=== PATIENT | female | born 1985 | race Caucasian/White ===

== ENCOUNTER 2021-07-14 20:59 | Emergency (ER) | payer MEDICAID ==
[~2021-07-14] VITALS: Ht 160 cm; Wt 88.5 kg
[2021-07-14 21:50] VITALS: BP 150/100
[2021-07-14] MEDS ORDERED: CYCL10TA9 PO (22:31)
[2021-07-14] MEDS ORDERED: HYDR-4209 PO (22:31)
[2021-07-14] MEDS ORDERED: CYCLOBENZAPRINE 10 MG TABLET ONE (22:40)
[2021-07-14] MEDS ORDERED: HYDROCODONE/APAP 5/325MG TABLET ONE (22:40)
[2021-07-14] MEDS ORDERED: CYCLOBENZAPRINE 10 MG TABLET PO ONE (23:00)
[2021-07-14] MEDS ORDERED: HYDROCODONE/APAP 5/325MG TABLET PO ONE (23:00)
== END 2021-07-14 22:45 | disposition home or self-care (01) ==
LOC: ER 21:03
DX: S16.1XXA Strain of muscle, fascia and tendon at neck level, initial encounter (principal); S29.012A Strain of muscle and tendon of back wall of thorax, initial encounter; V49.9XXA Car occupant (driver) (passenger) injured in unspecified traffic accident, initial encounter; Y93.89 Activity, other specified; Y92.89 Other specified places as the place of occurrence of the external cause; Y99.8 Other external cause status

== ENCOUNTER 2022-08-11 19:39 | Emergency (ER) | payer MEDICAID ==
[~2022-08-11] VITALS: Ht 162.6 cm; Wt 86.2 kg
[~2022-08-11 19:39] MED LIST: CYCL10TA9 PO; HYDR-4209 PO
[2022-08-11] MEDS ORDERED: KETOROLAC TROMETHAMINE INJ 30 MG/ML VIAL ONE (21:36)
[2022-08-11] MEDS: KETOROLAC TROMETHAMINE INJ 30 MG/ML VIAL IM ONE (21:39)
[2022-08-11 21:50] LABS: BASOPHILS % (AUTO) 0.4 % (0.0-2.0); HEMATOCRIT 39 % (33-45); HEMOGLOBIN 12.5 g/dL (11.5-14.8); LYMPHOCYTES # (AUTO) 3.4 K/uL (0.8-4.8); LYMPHOCYTES % (AUTO) 29.4 % (20.0-44.0); MEAN CORPUSCULAR HGB CONC 32 g/dl (31.0-36.0); MEAN CORPUSCULAR VOLUME 86 fL (82-100); MONOCYTES # (AUTO) 0.9 K/uL (0.1-1.30); MONOCYTES % (AUTO) 7.8 % (2.0-12.0); NEUTROPHILS % (AUTO) 61.4 % (43.0-81.0); PLATELET COUNT (AUTO) 243 K/uL (150-450); RED BLOOD CELL COUNT(AUTO) 4.54 MIL/uL (4.0-5.2); WHITE BLOOD COUNT (AUTO) 11.4 K/uL (4.3-11.0)
[2022-08-11 22:08] LABS: CALCIUM, SERUM 8.5 mg/dL (8.5-10.1); CREATININE 0.7 mg/dL (0.6-1.3); POTASSIUM 3.9 mmol/L (3.5-5.1)
[2022-08-11 22:25] LABS: ALBUMIN 2.8 g/dL (3.4-5.0); BILIRUBIN,DIRECT 0.1 mg/dL (0.0-0.2); BILIRUBIN,TOTAL 0.2 mg/dL (0.2-1.0); TOTAL PROTEIN, SERUM 7.9 g/dL (6.4-8.2)
[2022-08-11] MEDS ORDERED: IBUP-1955 PO (23:21)
[2022-08-11] MEDS ORDERED: CEPH500C2 PO (23:21)
--- NOTE | 2022-08-11 23:23 | NUR ---
Patient discharged to home in stable condition. Written and verbal after care instructions given. Patient verbalizes understanding of instruction.
[2022-08-11 23:24] VITALS: BP 140/99
== END 2022-08-11 23:25 | disposition home or self-care (01) ==
LOC: ER 19:39
DX: L03.116 Cellulitis of left lower limb (principal); R10.11 Right upper quadrant pain; Z79.899 Other long term (current) drug therapy
CPT/HCPCS: 99285; 76705; 96372; 85025; 80048; 83690; 80076; 36415; J1885

== ENCOUNTER 2022-09-01 00:28 | Emergency (ER) | payer MEDICAID ==
[~2022-09-01] VITALS: Ht 165.1 cm; Wt 88.5 kg
[~2022-09-01 00:28] MED LIST changes: +CEPH500C2 PO; +IBUP-1955 PO
--- NOTE | 2022-09-01 01:18 | NUR ---
BIBSELF FROM HOME C/O R FLANK & R GROIN PAIN X2 WEEKS. +N/V . HX GALLBLADDER STONE. PT A/OX4. TOLERATING R/A WELL WITH NO RESP DISTRESS. SAFETY MEASURES IN PLACE.
--- NOTE | 2022-09-01 01:22 | NUR ---
URINE COLLECTED AND SENT TO LAB
[2022-09-01 01:54] LABS: BILIRUBIN,URINE NEGATIVE (NEGATIVE); COLOR,URINE OTHER (YELLOW); LEUKOCYTE ESTERASE ,URINE NEGATIVE (NEGATIVE); NITRITE, URINE NEGATIVE (NEGATIVE); PH,URINE 6.5 (5.0-8.0); PROTEIN,URINE NEGATIVE (NEGATIVE); UGLUCOSE 2+ mg/dL (NEGATIVE); UROBILINOGEN,URINE 0.2 EU/dL (0.2)
[2022-09-01] MEDS ORDERED: IBUPROFEN 400 MG TABLET PO ONE (02:00)
--- NOTE | 2022-09-01 02:10 | NUR ---
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
[2022-09-01] MEDS ORDERED: IBUPROFEN 400 MG TABLET ONE (02:23)
[2022-09-01 02:28] LABS: BACTERIA,URINE None seen /HPF (None Seen); RBC,URINE 0-2 /HPF (0-2); SQUAMOUS EPITHELIAL CELL,UR Rare /HPF (None Seen); WBC,URINE 0-2 /HPF (0-3)
[2022-09-01 02:29] LABS: BASOPHILS % (AUTO) 0.3 % (0.0-2.0); EOSINOPHILS % (AUTO) 1.1 % (0.0-6.0); HEMATOCRIT 36 % (33-45); HEMOGLOBIN 11.7 g/dL (11.5-14.8); LYMPHOCYTES # (AUTO) 4.1 K/uL (0.8-4.8); LYMPHOCYTES % (AUTO) 40.2 % (20.0-44.0); MEAN CORPUSCULAR HGB CONC 32 g/dl (31.0-36.0); MEAN CORPUSCULAR VOLUME 86 fL (82-100); MONOCYTES # (AUTO) 0.8 K/uL (0.1-1.30); MONOCYTES % (AUTO) 7.5 % (2.0-12.0); NEUTROPHILS # (AUTO) 5.2 K/uL (1.8-8.9); NEUTROPHILS % (AUTO) 50.9 % (43.0-81.0); PLATELET COUNT (AUTO) 242 K/uL (150-450); RED BLOOD CELL COUNT(AUTO) 4.19 MIL/uL (4.0-5.2); WHITE BLOOD COUNT (AUTO) 10.2 K/uL (4.3-11.0)
[2022-09-01 02:38] LABS: CALCIUM, SERUM 8.5 mg/dL (8.5-10.1); CREATININE 0.6 mg/dL (0.6-1.3); POTASSIUM 3.8 mmol/L (3.5-5.1)
[2022-09-01 02:45] LABS: ALBUMIN 2.7 g/dL (3.4-5.0); BILIRUBIN,DIRECT 0.1 mg/dL (0.0-0.2); BILIRUBIN,TOTAL 0.2 mg/dL (0.2-1.0); TOTAL PROTEIN, SERUM 7.6 g/dL (6.4-8.2)
--- NOTE | 2022-09-01 05:13 | NUR ---
CALLED [facility] TO F/U WITH CT RESULT & SPOKE TO DARLENE "REPORT WITH BE RESULTED IN SEVERAL MINUTES"
[2022-09-01] MEDS ORDERED: IBUP-1955 PO (05:43)
--- NOTE | 2022-09-01 05:51 | NUR ---
Patient discharged to home in stable condition. Written and verbal after care instructions given. Patient verbalizes understanding of instruction.
[2022-09-01 05:52] VITALS: BP 125/83
== END 2022-09-01 05:52 | disposition home or self-care (01) ==
LOC: ER 00:30
DX: R10.9 Unspecified abdominal pain (principal); Z79.899 Other long term (current) drug therapy
CPT/HCPCS: 36415; 80048-TC; 80076-TC; 81001; 83690-TC; 84702-TC; 84703-TC; 85025-TC; 87086-TC

== ENCOUNTER 2022-12-09 22:55 | Emergency (ER) | payer MEDICAID ==
[~2022-12-09] VITALS: Ht 162.6 cm; Wt 86.2 kg
[2022-12-10] MEDS ORDERED: CEPH500T PO (00:32)
[2022-12-10] MEDS ORDERED: IBUP-1953 PO (00:32)
--- NOTE | 2022-12-10 01:49 | NUR ---
Patient AOx4, able to express concerns. Patient reports right foot pain. 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 All safety precautions taken.
[2022-12-10 01:51] VITALS: BP 130/82
== END 2022-12-10 01:51 | disposition home or self-care (01) ==
LOC: ER 22:57
DX: L03.115 Cellulitis of right lower limb (principal)